=== PATIENT | female | born 1930 | race Asian ===

== ENCOUNTER 2016-08-23 09:52 | Outpatient (CLI) | payer OTHER | END 2016-08-23 19:31 | disposition home or self-care (01) | LOC: MAMMO 09:52 | DX: Z85.3 Personal history of malignant neoplasm of breast (principal) | CPT/HCPCS: 77056; G0206 ==

== ENCOUNTER 2017-05-17 10:06 | Outpatient (CLI) | payer OTHER | END 2017-05-17 19:23 | disposition home or self-care (01) | LOC: LABW 10:06 | DX: T84.84XA Pain due to internal orthopedic prosthetic devices, implants and grafts, initial encounter (principal) | CPT/HCPCS: 36415; 85651; 86140 ==

== ENCOUNTER 2017-06-11 13:37 | Outpatient (CLI) | payer OTHER | END 2017-06-11 19:18 | disposition home or self-care (01) | LOC: MAMMO 13:37 | DX: R92.8 Other abnormal and inconclusive findings on diagnostic imaging of breast (principal) ==

== ENCOUNTER 2017-06-19 09:47 | Outpatient (CLI) | payer OTHER | END 2017-06-19 10:50 | disposition home or self-care (01) | LOC: RAD 09:47 | DX: M47.26 Other spondylosis with radiculopathy, lumbar region (principal) ==

== ENCOUNTER 2017-09-21 10:25 | Outpatient (CLI) | payer OTHER | END 2017-09-21 21:06 | disposition home or self-care (01) | LOC: MAMMO 10:25 | DX: Z85.3 Personal history of malignant neoplasm of breast (principal); Z90.11 Acquired absence of right breast and nipple ==

== ENCOUNTER 2017-10-23 08:19 | Outpatient (CLI) | payer OTHER | END 2017-10-23 19:57 | disposition home or self-care (01) | LOC: NM 08:19 | DX: Z01.810 Encounter for preprocedural cardiovascular examination (principal) | CPT/HCPCS: 93306; A9500; J2785 ==

== ENCOUNTER 2018-09-11 09:14 | Emergency (ER) | payer OTHER ==
[~2018-09-11] VITALS: Ht 165.1 cm; Wt 69.4 kg
[2018-09-11 09:22] VITALS: TEMP 98
[2018-09-11] MEDS ORDERED: TRAMADOL HYDROC50 MG PO (09:31)
[2018-09-11] MEDS ORDERED: HYZAAR1 TA1 PO (09:32)
[2018-09-11] MEDS ORDERED: NIFE30TA PO (09:32)
[2018-09-11] MEDS ORDERED: LOVASTATIN40 MG PO (09:33)
[2018-09-11] MEDS ORDERED: LEVO0.0218 PO (09:33)
[2018-09-11 10:52] VITALS: BP 155/61
== END 2018-09-11 10:53 | disposition home or self-care (01) ==
LOC: ED 09:14
DX: S83.8X1A Sprain of other specified parts of right knee, initial encounter (principal); W18.39XA Other fall on same level, initial encounter; Y92.89 Other specified places as the place of occurrence of the external cause; M25.561 Pain in right knee
CPT/HCPCS: 99282

== ENCOUNTER 2018-09-24 09:47 | Outpatient (CLI) | payer OTHER ==
[~2018-09-24 09:47] MED LIST: HYZAAR1 TA1 PO; LEVO0.0218 PO; LOVASTATIN40 MG PO; NIFE30TA PO; TRAMADOL HYDROC50 MG PO
== END 2018-09-24 19:16 | disposition home or self-care (01) ==
LOC: MAMMO 09:47
DX: R92.8 Other abnormal and inconclusive findings on diagnostic imaging of breast (principal)

== ENCOUNTER 2019-05-28 10:26 | Outpatient (CLI) | payer OTHER | END 2019-05-28 19:11 | disposition home or self-care (01) | LOC: RAD 10:26 | DX: M25.561 Pain in right knee (principal) ==

== ENCOUNTER 2019-09-25 13:06 | Outpatient (CLI) | payer OTHER | END 2019-09-25 19:49 | disposition home or self-care (01) | LOC: MAMMO 13:06 | DX: Z12.31 Encounter for screening mammogram for malignant neoplasm of breast (principal); N64.59 Other signs and symptoms in breast | CPT/HCPCS: G0279 ==

== ENCOUNTER 2020-09-23 14:11 | Outpatient (CLI) | payer OTHER | END 2020-09-23 20:01 | disposition home or self-care (01) | LOC: INF 14:11 | PROVIDERS: ATTEND Internal Medicine Endocrinology, Diabetes & Metabolism | DX: Z23 Encounter for immunization (principal) | CPT/HCPCS: 96372 ==

== ENCOUNTER 2020-09-23 14:39 | Outpatient (CLI) | payer OTHER | END 2020-09-23 20:02 | disposition home or self-care (01) | LOC: RAD 14:39 → MAMMO 14:39 | PROVIDERS: ATTEND Nurse Practitioner Family | DX: R92.8 Other abnormal and inconclusive findings on diagnostic imaging of breast (principal); M25.512 Pain in left shoulder; Z90.11 Acquired absence of right breast and nipple | CPT/HCPCS: 96372; G0279 ==

== ENCOUNTER 2020-10-19 08:44 | Outpatient (CLI) | payer OTHER | END 2020-10-19 19:14 | disposition home or self-care (01) | LOC: INF 08:44 | PROVIDERS: ATTEND Internal Medicine | DX: Z23 Encounter for immunization (principal) | CPT/HCPCS: 96372 ==

== ENCOUNTER 2020-11-17 11:32 | Outpatient (CLI) | payer OTHER | END 2020-11-17 20:13 | disposition home or self-care (01) | LOC: RAD 11:32 | PROVIDERS: ATTEND Nurse Practitioner Family | DX: M54.12 Radiculopathy, cervical region (principal) ==

== ENCOUNTER 2021-03-16 13:58 | Outpatient (CLI) | payer OTHER | END 2021-03-16 18:45 | disposition home or self-care (01) | LOC: MRI 13:58 | PROVIDERS: ATTEND Physical Medicine & Rehabilitation | DX: M54.16 Radiculopathy, lumbar region (principal) ==

== ENCOUNTER 2021-06-03 11:52 | Outpatient (CLI) | payer OTHER ==
[2021-06-03 13:12] LABS: PLATELET COUNT 271 K/uL (152-353)
[2021-06-03 13:42] LABS: POTASSIUM 3.2 mmol/L (3.6-5.2)
== END 2021-06-03 19:25 | disposition home or self-care (01) ==
LOC: LABW 11:52
PROVIDERS: ATTEND Nurse Practitioner Family
DX: M54.12 Radiculopathy, cervical region (principal); R60.0 Localized edema
CPT/HCPCS: 36415; 80053; 82550; 82553; 83880; 84484; 85027

== ENCOUNTER 2021-06-10 11:01 | Outpatient (CLI) | payer OTHER | END 2021-06-10 21:03 | disposition home or self-care (01) | LOC: MRI 11:01 | PROVIDERS: ATTEND Nurse Practitioner Family | DX: M19.012 Primary osteoarthritis, left shoulder (principal) ==

== ENCOUNTER 2022-01-17 10:17 | Emergency (ER) | payer OTHER ==
[~2022-01-17] VITALS: Ht 157.5 cm; Wt 71.7 kg
[2022-01-17 11:44] LABS: PLATELET COUNT 256 K/uL (152-353)
[2022-01-17 11:49] LABS: POTASSIUM 3.6 mmol/L (3.6-5.2)
[2022-01-17 11:57] LABS: PARTIAL THROMBOPLASTIN TIME 24.5 SECONDS (24.5-33.6)
[2022-01-17 12:46] VITALS: BP 146/65; TEMP 98
== END 2022-01-17 12:46 | disposition home or self-care (01) ==
LOC: ED 10:17
PROVIDERS: Emergency Medicine
DX: K62.5 Hemorrhage of anus and rectum (principal); Z87.898 Personal history of other specified conditions; K59.09 Other constipation
CPT/HCPCS: 80053; 85027; 85610; 85730; 99283

== ENCOUNTER 2022-01-18 15:47 | Outpatient (CLI) | payer OTHER ==
[2022-01-18 16:28] LABS: POTASSIUM 4.1 mmol/L (3.6-5.2)
== END 2022-01-18 18:53 | disposition home or self-care (01) ==
LOC: CT 15:47 → LABW 15:47
PROVIDERS: ATTEND Nurse Practitioner Family
DX: R10.11 Right upper quadrant pain (principal); K29.00 Acute gastritis without bleeding
CPT/HCPCS: 36415; 80053; 82150; 83690